=== PATIENT | male | born 1985 | race African-American/Black ===

== ENCOUNTER 2017-10-05 20:26 | Emergency (ER) | payer OTHER, MEDICAID | END 2017-10-06 00:48 | disposition home or self-care (01) | LOC: FTE 20:26 | DX: S00.81XA Abrasion of other part of head, initial encounter (principal); V17.4XXA Pedal cycle driver injured in collision with fixed or stationary object in traffic accident, initial encounter; Y92.9 Unspecified place or not applicable | CPT/HCPCS: 12001; 99283-25 ==